=== PATIENT | male | born 1935 | race Caucasian/White ===

== ENCOUNTER 2021-03-13 16:26 | Inpatient (IN) | payer MEDICARE ==
[~2021-03-13] VITALS: Ht 182.9 cm; Wt 70.8 kg
[~2021-03-13 16:26] MED LIST: AMIT50TA3 PO; CARB-93 PO; CITA20TA16 PO; ESCI10TA PO; LORA1TAB PO
--- NOTE | 2021-03-13 16:32 | NUR ---
PT BIBRA FROM SNF TO ER BED 07. PER EMS REPORT, HERE FOR GENERALIZED WEAKNESS AND DIARRHEA FOR 2 DAYS. PT HAS A FEVER 101.7 MAIL CLERK. DENIES ANY PAIN. HYPOTENSIVE UPON INTIAL ASSESSMENT. GOWNED. AWAITING MD COLLADO.
--- NOTE | 2021-03-13 16:41 | NUR ---
DR GARCIA AT BEDSIDE FOR EVAL.
--- NOTE | 2021-03-13 16:45 | NUR ---
PT PROVIDED W/ BED BATH. SOILED DIAPER CHANGED.
[2021-03-13] MEDS ORDERED: IV NS 0.9% 1,000 ML BAG IV ONE (17:00)
[2021-03-13] MEDS ORDERED: ACETAMINOPHEN ES 500 MG TABLET PO ONE (17:00)
[2021-03-13] MEDS ORDERED: PIPERACILLIN /TAZOBACTAM 3.375 G in IV D5W 50 ML IV ONE (17:00)
[2021-03-13] MEDS ORDERED: IBUPROFEN 600 MG TABLET PO ONE (17:00)
--- NOTE | 2021-03-13 17:00 | NUR ---
IV LINE STARTED BLOOD DRAWN AND SENT TO LAB.
[2021-03-13 17:08] LABS: BASOPHILS % (AUTO) 0.2 % (0.0-2.0); EOSINOPHILS % (AUTO) 0.1 % (0.0-6.0); HEMATOCRIT 36 % (39-51); HEMOGLOBIN 11.7 g/dL (13.5-17.5); LYMPHOCYTES # (AUTO) 0.4 K/uL (0.8-4.8); MEAN CORPUSCULAR HGB CONC 33 g/dl (31.0-36.0); MEAN CORPUSCULAR VOLUME 81 fL (80-96); MONOCYTES % (AUTO) 10.1 % (2.0-12.0); NEUTROPHILS # (AUTO) 8.2 K/uL (1.8-8.9); NEUTROPHILS % (AUTO) 85.6 % (43.0-81.0); PLATELET COUNT (AUTO) 308 K/uL (150-450); RED BLOOD CELL COUNT(AUTO) 4.44 MIL/uL (4.5-6.0); WHITE BLOOD COUNT (AUTO) 9.5 K/uL (4.3-11.0)
--- NOTE | 2021-03-13 17:14 | NUR ---
RADIOLOGY AT BEDSIDE FOR CHEST XRAY.
[2021-03-13 17:15] LABS: BILIRUBIN,URINE SMALL (NEGATIVE); COLOR,URINE YELLOW (YELLOW); LEUKOCYTE ESTERASE ,URINE Negative (NEGATIVE); NITRITE, URINE Negative (NEGATIVE); PH,URINE 6.5 (5.0-8.0); PROTEIN,URINE 100 mg/dl (NEGATIVE); UGLUCOSE Negative (NEGATIVE)
[2021-03-13 17:16] LABS: CALCIUM, SERUM 8.5 mg/dL (8.5-10.1); CARBON DIOXIDE 28 mmol/L (21-32); CHLORIDE 95 mmol/L (98-107); GLUCOSE 134 mg/dL (74-106); POTASSIUM 4.5 mmol/L (3.5-5.1); SODIUM SERUM 130 mmol/L (136-145); UREA NITROGEN, BLOOD 26 mg/dL (7-18)
[2021-03-13] MEDS ORDERED: ACETAMINOPHEN ES 500 MG TABLET ONE (17:21)
[2021-03-13 17:22] LABS: ALANINE AMINOTRANSFERASE 8 U/L (12-78); ALBUMIN 2.7 g/dL (3.4-5.0); ALKALINE PHOSPHATASE 83 U/L (46-116); ASPARTATE AMINOTRANSFERASE 48 U/L (15-37); BILIRUBIN,DIRECT 0.1 mg/dL (0.0-0.2); BILIRUBIN,TOTAL 0.5 mg/dL (0.2-1.0); TOTAL PROTEIN, SERUM 6.7 g/dL (6.4-8.2)
[2021-03-13] MEDS ORDERED: IBUPROFEN 600 MG TABLET ONE (17:22)
[2021-03-13 17:43] LABS: BACTERIA,URINE Rare /HPF (None Seen); RBC,URINE NONE SEEN /HPF (0-2); SQUAMOUS EPITHELIAL CELL,UR Few /HPF (None Seen); WBC,URINE NONE SEEN /HPF (0-3)
--- NOTE | 2021-03-13 17:53 | NUR ---
PT'S DAUGHTER AT BEDSIDE. REFUSING COVID TEST. DR GARCIA MADE AWARE.
--- NOTE | 2021-03-13 18:23 | NUR ---
EMMA DAUGHTER LEFT CONTACT # [phone]
--- NOTE | 2021-03-13 18:55 | NUR ---
PT TO RADIOLOGY FOR ABDOMINAL CT SCAN VIA [facility].
--- NOTE | 2021-03-13 19:42 | NUR ---
CALLED [facility], PAGED CASE RESOLUTION SPECIALIST FOR ADMISSION
--- NOTE | 2021-03-13 20:10 | NUR ---
PT SLEEPING COMFORTABLY IN BED. VITAL SIGNS STABLE. RESPIRATIONS EVEN AND UNLABORED. NO ACUTE DISTRESS NOTED AT THIS TIME. STILL ON MONITOR, WILL CONTINUE TO MONITOR
--- NOTE | 2021-03-13 20:59 | NUR ---
REPORT GIVEN TO JOHN HERNANDEZ FOR MANDO
[2021-03-13] MEDS ORDERED: Z GUARD REMEDY 2 OZ OINT TP PRN (21:00)
[2021-03-13] MEDS ORDERED: ONDANSETRON HCL/PF 4 MG/2 ML VIAL IVP PRN (21:00)
[2021-03-13] MEDS ORDERED: ACETAMINOPHEN 325 MG TABLET PO PRN (21:00)
[2021-03-13] MEDS ORDERED: ZOLPIDEM TARTRATE 5 MG TABLET PO PRN (21:00)
[2021-03-13] MEDS ORDERED: MAG HYDROX/AL HYDROX/SIMETH 30 ML UDC PO PRN (21:00)
[2021-03-13] MEDS ORDERED: MAGNESIUM HYDROXIDE 30 ML UDC PO PRN (21:00)
--- NOTE | 2021-03-13 21:26 | NUR ---
PT TRANSFERRED TO TELE 103 PER [employer]S PROTOCOL
[2021-03-13] MEDS: IV NS 0.9% 1,000 ML IV PRN (22:50)
[2021-03-13] MEDS: ENOXAPARIN SODIUM 40 MG/0.4 ML DISP.SYRIN SQ SCH (22:55)
[2021-03-13] MEDS ORDERED: PIPERACILLIN /TAZOBACTAM 3.375 G VIAL IV ONE (23:46)
[2021-03-13] MEDS: ZOSYN IVPB 3.375 G in IV D5W 50ml IV SCH (23:48)
[2021-03-14] VITALS: BP 99/54
--- NOTE | 2021-03-14 03:24 | NUR ---
RN notes Admitted an 86 year old male from ER via stretcher with diagnosis of fever of unknown origin. Alert and oriented x 2 with confusion and disorientation. Able to follow needs and answers simple questions verbally, non ambulatory. No complaint of pain or discomfort as of this time. On nasal cannula at 3lpm tolerating well. No distress noted, breathing even and unlabored. Vital signs wnl. Kept clean and dry. Will endorse to next shift for continuity of care.
[2021-03-14 04:00] VITALS: BP 113/48
[2021-03-14] MEDS ORDERED: PIPERACILLIN /TAZOBACTAM 3.375 G VIAL IV ONE (04:23)
[2021-03-14] MEDS: ZOSYN IVPB 3.375 G in IV D5W 50ml IV SCH (04:29)
[2021-03-14 06:43] LABS: BASOPHILS % (AUTO) 0.2 % (0.0-2.0); EOSINOPHILS % (AUTO) 1.2 % (0.0-6.0); HEMATOCRIT 34 % (39-51); HEMOGLOBIN 10.9 g/dL (13.5-17.5); LYMPHOCYTES # (AUTO) 0.5 K/uL (0.8-4.8); LYMPHOCYTES % (AUTO) 7.1 % (20.0-44.0); MEAN CORPUSCULAR HGB CONC 32 g/dl (31.0-36.0); MEAN CORPUSCULAR VOLUME 82 fL (80-96); MONOCYTES # (AUTO) 0.8 K/uL (0.1-1.30); MONOCYTES % (AUTO) 10.9 % (2.0-12.0); NEUTROPHILS # (AUTO) 6.2 K/uL (1.8-8.9); NEUTROPHILS % (AUTO) 80.6 % (43.0-81.0); PLATELET COUNT (AUTO) 254 K/uL (150-450); RED BLOOD CELL COUNT(AUTO) 4.13 MIL/uL (4.5-6.0); WHITE BLOOD COUNT (AUTO) 7.7 K/uL (4.3-11.0)
[2021-03-14 07:07] LABS: ALBUMIN 2.1 g/dL (3.4-5.0); BILIRUBIN,TOTAL 0.5 mg/dL (0.2-1.0); MAGNESIUM 2.6 mg/dL (1.8-2.4); PHOSPHORUS 3.7 mg/dL (2.5-4.9); POTASSIUM 4.5 mmol/L (3.5-5.1); TOTAL PROTEIN, SERUM 5.8 g/dL (6.4-8.2)
[2021-03-14 07:33] LABS: THYROID STIMULATING HORMONE 2.011 uIU/mL (0.358-3.74)
[2021-03-14] MEDS: PANTOPRAZOLE 40 MG TABLET.DR PO SCH (07:42)
[2021-03-14] MEDS ORDERED: LORA1TAB PO (07:53)
[2021-03-14] MEDS ORDERED: CARB-93 PO (07:53)
[2021-03-14] MEDS ORDERED: DOCU100C36 PO (07:53)
[2021-03-14] MEDS ORDERED: OMEP20CA15 PO (07:53)
[2021-03-14] MEDS ORDERED: CITA20TA16 PO (07:53)
[2021-03-14 08:00] VITALS: BP 113/48
[2021-03-14] MEDS: PIPERACILLIN /TAZOBACTAM 3.375 G in IV D5W 100 ML IV SCH ×2 (09:43→17:31)
[2021-03-14] MEDS ORDERED: ASCO500C17 PO (09:55)
[2021-03-14] MEDS ORDERED: ACET325T53 PO (09:55)
[2021-03-14] MEDS ORDERED: ERGO500093 PO (09:55)
[2021-03-14] MEDS ORDERED: MAGN400O6 PO (09:55)
[2021-03-14] MEDS ORDERED: MULT-447 PO (09:55)
[2021-03-14] MEDS ORDERED: MAGN500C16 PO (09:55)
[2021-03-14] MEDS ORDERED: MELA5TAB PO (09:55)
[2021-03-14] MEDS ORDERED: PSYL1PAC8 PO (09:55)
[2021-03-14] MEDS ORDERED: NA P133E RC (09:55)
[2021-03-14] MEDS ORDERED: VIT1CAPS9 PO (09:55)
[2021-03-14] MEDS ORDERED: CHOL100034 PO (09:55)
[2021-03-14 12:00] VITALS: BP 113/48
[2021-03-14] MEDS ORDERED: SINEMET 25-250 PO (12:05)
[2021-03-14] MEDS ORDERED: SINEMET PO (12:05)
[2021-03-14 16:00] VITALS: BP 118/61
[2021-03-14 20:00] VITALS: BP 104/55
[2021-03-14] MEDS: CARBIDOPA/LEVODOPA 25/100 MG 1 UDTAB PO SCH (21:33)
[2021-03-14] MEDS: MAGNESIUM OXIDE 400 MG TABLET PO SCH (21:33)
[2021-03-14] MEDS: ENOXAPARIN SODIUM 40 MG/0.4 ML DISP.SYRIN SQ SCH (21:34)
[2021-03-15] MEDS: PIPERACILLIN /TAZOBACTAM 3.375 G in IV D5W 100 ML IV SCH ×3 (02:03→17:04)
[2021-03-15 04:00] VITALS: BP 108/48
--- NOTE | 2021-03-15 06:14 | NUR ---
MS-1/PRECINCT COMMANDING OFFICER COVID NEGATIVE PT TRANSFERRED TO ROOM 113-1
[2021-03-15] MEDS: CARBIDOPA/LEVODOPA 25/100 MG 1 UDTAB PO SCH ×5 (06:19→20:29)
[2021-03-15 06:28] LABS: BASOPHILS % (AUTO) 0.3 % (0.0-2.0); EOSINOPHILS % (AUTO) 1.3 % (0.0-6.0); HEMATOCRIT 31 % (39-51); HEMOGLOBIN 10.4 g/dL (13.5-17.5); LYMPHOCYTES # (AUTO) 0.6 K/uL (0.8-4.8); LYMPHOCYTES % (AUTO) 6.5 % (20.0-44.0); MEAN CORPUSCULAR HGB CONC 33 g/dl (31.0-36.0); MEAN CORPUSCULAR VOLUME 81 fL (80-96); MONOCYTES # (AUTO) 1.2 K/uL (0.1-1.30); MONOCYTES % (AUTO) 12.2 % (2.0-12.0); NEUTROPHILS # (AUTO) 7.8 K/uL (1.8-8.9); NEUTROPHILS % (AUTO) 79.7 % (43.0-81.0); PLATELET COUNT (AUTO) 277 K/uL (150-450); RED BLOOD CELL COUNT(AUTO) 3.86 MIL/uL (4.5-6.0); WHITE BLOOD COUNT (AUTO) 9.7 K/uL (4.3-11.0)
[2021-03-15 06:51] LABS: CALCIUM, SERUM 7.9 mg/dL (8.5-10.1); MAGNESIUM 2.4 mg/dL (1.8-2.4); PHOSPHORUS 3.7 mg/dL (2.5-4.9)
--- NOTE | 2021-03-15 07:03 | NUR ---
MS-1/LEAD ENTERPRISE ARCHITECT CALLED PTS DAUGHTER EMMA [phone] TO UPDATE HER ON HER DAD COVID NEGATIVE STATUS AND ROOM CHANGE. MESSAGE LEFT WILL ENDORSE TO AM SHIFT.
[2021-03-15] MEDS ORDERED: PANTOPRAZOLE 40 MG TABLET.DR PO SCH (07:30)
[2021-03-15 08:00] VITALS: BP 104/46
--- NOTE | 2021-03-15 08:16 | NUR ---
RN NOTES RECEIVED PT AWAKE AND RESTING IN BED, NO SIGNS OF ANY DISTRESS. NO SIGNS AND SYMPTOMS OF ANY PAIN OR DISCOMFORT NOTED. IV ACCESS IN Place with ivf infusing. safetu ensured, bsr up, call light within reach. will conitinue to monitor Addendum: 03/15/21 at 1732 by RAFFY TRACY RN upon endorsement SIMÓN Rene endorsed that pt had an episode of bm
--- NOTE | 2021-03-15 09:00 | NUR ---
rn notes pt noted with enema order, clarified with Gita Orozco upon rounds and she said no need for enema at this time
[2021-03-15] MEDS: CHOLECALCIFEROL 1,000 UNIT TABLET (VIT D3) PO SCH (09:44)
[2021-03-15] MEDS: MULTIVITAMINS,THERAGRAN 1 UDTAB TABLET PO SCH (09:44)
[2021-03-15] MEDS: DOCUSATE SODIUM 100 MG CAPSULE PO SCH ×2 (09:45→17:04)
[2021-03-15] MEDS: CITALOPRAM HYDROBROMIDE 20 MG TABLET PO SCH (09:45)
[2021-03-15] MEDS: ASCORBIC ACID 500 MG TABLET PO SCH (09:45)
[2021-03-15] MEDS: PANTOPRAZOLE 40 MG TABLET.DR PO SCH (09:47)
[2021-03-15] MEDS ORDERED: POLYETHYLENE GLYCOL 3350 17 GM POWD.PACK PO PRN (10:30)
[2021-03-15] MEDS ORDERED: DOCUSATE SODIUM 100 MG CAPSULE PO SCH (10:30)
[2021-03-15 16:00] VITALS: BP 128/61
--- NOTE | 2021-03-15 17:59 | NUR ---
rn closing notes pt resting in bed; slept intermittently. encouraged rom , pt able to follow. all meds given. no discomfort noted. pts daughter Afua came; updated with plan of care. for PT f/up and continue ATB as ordered
--- NOTE | 2021-03-15 19:25 | NUR ---
rn notes endorsed to next shift rn for continuity of care in stable condition
[2021-03-15 20:00] VITALS: BP 117/45
--- NOTE | 2021-03-15 20:00 | NUR ---
RN NOTE RECEIVED PT IN BED A/A/O X3.PT IS ON RA SATING 97%, HAS UNLABORED BREATHING.WILL CONTINUE WITH PLAN OF CARE.
[2021-03-15] MEDS: ENOXAPARIN SODIUM 40 MG/0.4 ML DISP.SYRIN SQ SCH (20:32)
[2021-03-15] MEDS: MAGNESIUM OXIDE 400 MG TABLET PO SCH (21:45)
[2021-03-15] MEDS ORDERED: CARBIDOPA/LEV CR 50/200 MG 1 UDTAB.SA PO SCH (22:00)
[2021-03-16] MEDS ORDERED: PIPERACILLIN /TAZOBACTAM 3.375 G VIAL IV ONE (03:30)
[2021-03-16] MEDS: IV NS 0.9% 1,000 ML IV PRN (03:31)
[2021-03-16] MEDS: PIPERACILLIN /TAZOBACTAM 3.375 G in IV D5W 100 ML IV SCH ×2 (03:32→11:23)
[2021-03-16 04:00] VITALS: BP 138/53
[2021-03-16 06:38] LABS: BASOPHILS % (AUTO) 0.4 % (0.0-2.0); EOSINOPHILS % (AUTO) 1.3 % (0.0-6.0); HEMATOCRIT 32 % (39-51); HEMOGLOBIN 10.7 g/dL (13.5-17.5); LYMPHOCYTES # (AUTO) 0.7 K/uL (0.8-4.8); LYMPHOCYTES % (AUTO) 8.7 % (20.0-44.0); MEAN CORPUSCULAR HGB CONC 33 g/dl (31.0-36.0); MEAN CORPUSCULAR VOLUME 80 fL (80-96); MONOCYTES # (AUTO) 0.9 K/uL (0.1-1.30); MONOCYTES % (AUTO) 11.3 % (2.0-12.0); NEUTROPHILS % (AUTO) 78.3 % (43.0-81.0); PLATELET COUNT (AUTO) 312 K/uL (150-450); RED BLOOD CELL COUNT(AUTO) 4.03 MIL/uL (4.5-6.0); WHITE BLOOD COUNT (AUTO) 7.6 K/uL (4.3-11.0)
[2021-03-16 07:24] LABS: CREATININE 0.9 mg/dL (0.6-1.3); MAGNESIUM 2.3 mg/dL (1.8-2.4); PHOSPHORUS 3.7 mg/dL (2.5-4.9)
--- NOTE | 2021-03-16 07:38 | NUR ---
RN NOTE REPORT GIVEN TO ONCOMING SHIFT FOR MANDO.
--- NOTE | 2021-03-16 07:50 | NUR ---
MS RN OPENING NOTE PATIENT IS IN BED RESTING. PATIENT IS IN NO ACUTE DISTRESS. PATIENT IS ON ROOM AIR SATURATING WELL. PATIENT IS A FALL RISK. SAFETY PRECAUTIONS ARE ON, BED IS LOCKED IN THE LOWEST POSITION WITH SIDE RAILS UP. CALL LIGHT WITHIN REACH, CONTINUE TO MONITOR CLOSELY.
[2021-03-16] MEDS: ASCORBIC ACID 500 MG TABLET PO SCH (08:07)
[2021-03-16] MEDS: DOCUSATE SODIUM 100 MG CAPSULE PO SCH (08:08)
[2021-03-16] MEDS: CARBIDOPA/LEVODOPA 25/100 MG 1 UDTAB PO SCH ×3 (08:08→14:33)
[2021-03-16] MEDS: CHOLECALCIFEROL 1,000 UNIT TABLET (VIT D3) PO SCH (08:08)
[2021-03-16] MEDS: MULTIVITAMINS,THERAGRAN 1 UDTAB TABLET PO SCH (08:08)
[2021-03-16] MEDS: CITALOPRAM HYDROBROMIDE 20 MG TABLET PO SCH (08:11)
[2021-03-16] MEDS ORDERED: LEVO500T90 PO (10:50)
[2021-03-16] MEDS ORDERED: METR500T PO (10:50)
[2021-03-16 12:00] VITALS: BP 127/54
--- NOTE | 2021-03-16 14:47 | NUR ---
MS REGISTERED NURSE RENAL NOTE PATIENT IS MEDICALLY STABLE TO BE DISCHARGED. PATIENT IS IN NO ACUTE DISTRESS. DISCHARGE INSTRUCTIONS PROVIDED TO PATIENT. PATIENT VERBALIZED UNDERSTANDING. PATIENTS NEEDS WERE ADDRESSED DURING THE STAY. PATIENT HAS REDNESS IN SACRAL AREA, PICTURES TAKEN. PATIENTS IV LINE AND ID BAND REMOVED. BELONGINGS LIST WENT OVER AND SIGNED. PATIENT IS GOING TO [facility]. REPORT GIVEN. PATIENT WAS PICKED UP BY HI DAUGHTER. MD IS AWARE OF DISCHARGE.
[2021-03-18] MEDS ORDERED: ERGOCALCIFEROL (VITAMIN D 2) 50,000 UNIT CAPSULE PO SCH (09:00)
== END 2021-03-16 14:49 | DRG 872 ==
LOC: ER 16:33 → TELE1 20:58 → MEDSG1 03-14 06:52
PROVIDERS: ADMIT Hospitalist; ATTEND Nurse Practitioner Acute Care
DX: A41.9 Sepsis, unspecified organism (principal); E44.0 Moderate protein-calorie malnutrition; E87.1 Hypo-osmolality and hyponatremia; N17.9 Acute kidney failure, unspecified; E86.0 Dehydration; E86.1 Hypovolemia; F02.80 Dementia in other diseases classified elsewhere, unspecified severity, without behavioral disturbance, psychotic disturbance, mood disturbance, and anxiety; G20 Parkinson's disease; F32.9 Major depressive disorder, single episode, unspecified; Z79.899 Other long term (current) drug therapy; Z96.9 Presence of functional implant, unspecified; K62.89 Other specified diseases of anus and rectum; K59.00 Constipation, unspecified; R19.7 Diarrhea, unspecified
CPT/HCPCS: 36415; 71045-TC; 74018; 80048-TC; 80053-TC; 80061-TC; 80076-TC; 81001; 83605-TC; 83735-TC; 84100-TC; 84443-TC; 84484-TC; 85025-TC; 85730-TC; 87040-TC; 87081-TC; 87086-TC; 97116-TC; 97530-TC; G0378; J1650; J2543; J7030; J7060; U0003

== ENCOUNTER 2021-08-16 11:20 | Emergency (ER) | payer MEDICARE ==
[~2021-08-16] VITALS: Ht 182.9 cm; Wt 74.8 kg
[~2021-08-16 11:20] MED LIST changes: +ACET325T53 PO; -AMIT50TA3 PO; +ASCO500C17 PO; +CHOL100034 PO; +DOCU100C36 PO; +ERGO500093 PO; -ESCI10TA PO; +LEVO500T90 PO; -LORA1TAB PO; +MAGN400O6 PO; +MAGN500C16 PO; +MELA5TAB PO; +METR500T PO; +MULT-447 PO; +NA P133E RC; +OMEP20CA15 PO; +SINEMET 25-250 PO; +SINEMET PO; +VIT1CAPS9 PO
--- NOTE | 2021-08-16 11:27 | NUR ---
DR. NAVARRO AT FOR HEAVEN.
--- NOTE | 2021-08-16 11:40 | NUR ---
[id number], from snf, high blood pressure 180/100 on scene. PT AAOX3, VSS. RR EVEN & UNLABORED. DENIES CP, SOB, DIZZINESS, N/V AT THIS TIME. PLACED ON INSULATING MACHINE OPERATOR, SR. WILL CONT TO MONITOR.
--- NOTE | 2021-08-16 11:50 | NUR ---
TRANSVERSE ABDOMINAL MUSCLE SURGEON AT FOR BLOOD DRAW.
[2021-08-16 12:15] LABS: BASOPHILS % (AUTO) 0.3 % (0.0-2.0); EOSINOPHILS % (AUTO) 1.6 % (0.0-6.0); HEMATOCRIT 37 % (39-51); HEMOGLOBIN 12.2 g/dL (13.5-17.5); LYMPHOCYTES # (AUTO) 1.2 K/uL (0.8-4.8); LYMPHOCYTES % (AUTO) 12.8 % (20.0-44.0); MEAN CORPUSCULAR HGB CONC 33 g/dl (31.0-36.0); MEAN CORPUSCULAR VOLUME 81 fL (80-96); MONOCYTES # (AUTO) 0.7 K/uL (0.1-1.30); MONOCYTES % (AUTO) 7.8 % (2.0-12.0); NEUTROPHILS # (AUTO) 7.2 K/uL (1.8-8.9); NEUTROPHILS % (AUTO) 77.5 % (43.0-81.0); PLATELET COUNT (AUTO) 241 K/uL (150-450); RED BLOOD CELL COUNT(AUTO) 4.62 MIL/uL (4.5-6.0); WHITE BLOOD COUNT (AUTO) 9.3 K/uL (4.3-11.0)
[2021-08-16 12:36] LABS: ALANINE AMINOTRANSFERASE 11 U/L (12-78); ALKALINE PHOSPHATASE 95 U/L (46-116); ASPARTATE AMINOTRANSFERASE 11 U/L (15-37); BILIRUBIN,DIRECT 0.1 mg/dL (0.0-0.2); BILIRUBIN,TOTAL 0.4 mg/dL (0.2-1.0); CALCIUM, SERUM 8.5 mg/dL (8.5-10.1); CARBON DIOXIDE 29 mmol/L (21-32); CHLORIDE 102 mmol/L (98-107); GLUCOSE 78 mg/dL (74-106); SODIUM SERUM 138 mmol/L (136-145); TOTAL PROTEIN, SERUM 6.5 g/dL (6.4-8.2); UREA NITROGEN, BLOOD 22 mg/dL (7-18)
--- NOTE | 2021-08-16 13:37 | NUR ---
Patient discharged to SNF in stable condition. Written and verbal after care instructions given to son. Son verbalizes understanding of instruction. IV removed. Catheter intact and site benign. Pressure and 4x4 applied to site. No bleeding noted.
[2021-08-16 13:39] VITALS: BP 150/80
--- NOTE | 2021-08-16 13:40 | NUR ---
Son will drive pt to SNF.
== END 2021-08-16 13:40 ==
LOC: ER 11:22
DX: I10 Essential (primary) hypertension (principal); F41.9 Anxiety disorder, unspecified; Z79.899 Other long term (current) drug therapy
CPT/HCPCS: 36415; 71045-TC; 80048-TC; 80076-TC; 84484-TC; 85025-TC

== ENCOUNTER 2022-09-24 09:41 | Inpatient (IN) | payer MEDICARE ==
[~2022-09-24] VITALS: Ht 182.9 cm; Wt 72.6 kg
--- NOTE | 2022-09-24 09:48 | NUR ---
JANAE FROM [facility] FOR CONSTIPATION, ABDOMINAL DISTENSION X 4 DAYS. PT LAST BOWEL MOVEMENT WAS "4DAYS AGO". DENIES VOMITING OR NAUSEA. PT TAKEN TO BED, PLACED IN MONITOR. AAOX4 .BREATHING EVEN AND UNLABORED. VSS. AWAITING MD ORDERS.
[2022-09-24] MEDS ORDERED: ONDANSETRON HCL/PF 4 MG/2 ML VIAL IVP ONE (10:00)
--- NOTE | 2022-09-24 10:10 | NUR ---
ESTABLISHED IV 20G RIGHT FOREARM. BLOOD DRAW, SENT TO LAB.
--- NOTE | 2022-09-24 10:13 | NUR ---
TAKEN TO CT VIA [facility]
[2022-09-24 10:23] LABS: BASOPHILS % (AUTO) 0.2 % (0.0-2.0); EOSINOPHILS % (AUTO) 0.1 % (0.0-6.0); HEMATOCRIT 39 % (39-51); HEMOGLOBIN 12.3 g/dL (13.5-17.5); LYMPHOCYTES # (AUTO) 0.6 K/uL (0.8-4.8); LYMPHOCYTES % (AUTO) 4.9 % (20.0-44.0); MEAN CORPUSCULAR HGB CONC 32 g/dl (31.0-36.0); MEAN CORPUSCULAR VOLUME 83 fL (80-96); MONOCYTES # (AUTO) 0.6 K/uL (0.1-1.30); MONOCYTES % (AUTO) 4.7 % (2.0-12.0); NEUTROPHILS # (AUTO) 10.7 K/uL (1.8-8.9); NEUTROPHILS % (AUTO) 90.1 % (43.0-81.0); PLATELET COUNT (AUTO) 220 K/uL (150-450); WHITE BLOOD COUNT (AUTO) 11.8 K/uL (4.3-11.0)
--- NOTE | 2022-09-24 10:28 | NUR ---
RETURNED FROM CT.
--- NOTE | 2022-09-24 10:29 | NUR ---
PT PLACED ON URINAL. UNABLE TO GIVE URINE AT THIS TIME.
[2022-09-24] MEDS ORDERED: ONDANSETRON HCL/PF 4 MG/2 ML VIAL ONE (10:31)
[2022-09-24 10:57] LABS: ALBUMIN 3.4 g/dL (3.4-5.0); BILIRUBIN,DIRECT 0.1 mg/dL (0.0-0.2); BILIRUBIN,TOTAL 0.5 mg/dL (0.2-1.0); POTASSIUM 4.6 mmol/L (3.5-5.1)
--- NOTE | 2022-09-24 11:07 | NUR ---
covid swab collected and sent to lab
[2022-09-24] MEDS ORDERED: [UNRECOGNIZED DRUG - CODE] MC (11:43)
[2022-09-24] MEDS ORDERED: LACT20SO4 PO (11:43)
[2022-09-24] MEDS ORDERED: CANN100S PO (11:43)
[2022-09-24] MEDS ORDERED: LORA-259 PO (11:43)
[2022-09-24] MEDS ORDERED: CARB1TAB40 PO (11:43)
[2022-09-24] MEDS ORDERED: LOPE2CAP40 PO (11:43)
--- NOTE | 2022-09-24 11:45 | NUR ---
[facility] CALLED OIL SEAL ASSEMBLER PAGED.
--- NOTE | 2022-09-24 12:47 | NUR ---
EPIC FOOT MITER OPERATOR PAGED AGAIN.
--- NOTE | 2022-09-24 12:58 | NUR ---
GOT BED 324-1
--- NOTE | 2022-09-24 13:08 | NUR ---
REPORT GIVEN TO MARY LOPEZ
--- NOTE | 2022-09-24 14:00 | NUR ---
FORENSIC EXAMINER NOTE ADMITTED THIS 87 Y/O MALE PATIENT FROM ER, CAME TO THE UNIT @1330 TRANSPORTED VIA GURNEY ACCOMPANIED BY ER STAFF MARINA, WITH ADMITTING DIAGNOSIS OF: OBSTIPATION. PATIENT IS AWAKE, ALERT AND ORIENTED X4, VERBALLY RESPONSIVE, SOFT SPOKEN. NO SIGNS OF ACUTE DISTRESS NOTED. STABLE ON ROOM AIR. VITAL SIGNS FOLLOWS: BP 139/61, P 75, R 18, T 97.9, SPO2 97% ON ROOM AIR. NOTED WITH IV ACCESS ON RIGHT FOREARM #20G, INTACT AND PATENT, FLUSHES WELL AND SALINE LOCKED. BODY ASSESSMENT DONE. NOTED WITH ABDOMINAL DISTENTION, POSITIVE BOWEL SOUNDS ON ALL QUADRANTS. SKIN GENERALLY INTACT, NOTED WITH REDNESS ON BILATERAL HEEL, AND BILATERAL FEET, NON-BLANCHABLE. WILL ORDER WOUND CARE CONSULT. ROUTINE ADMISSION CARE PROVIDED. ORIENTED PATIENT TO STAFF AND ROOM. SAFETY MEASURE IN PLACE. BED IN LOW AND LOCKED POSITION, SIDE RAILS UP X2, CALL LIGHT PLACED WITHIN EASY REACH. WILL CONTINUE TO MONITOR PATIENT.
[2022-09-24 14:44] VITALS: BP 139/61
[2022-09-24] MEDS ORDERED: NA PHOS,M-B/NA PHOS,DI-BA 1 EA ENEMA RC ONE (15:41)
[2022-09-24] MEDS ORDERED: MAGNESIUM HYDROXIDE 30 ML UDC PO PRN (17:00)
[2022-09-24] MEDS ORDERED: LORAZEPAM 1 MG TABLET PO PRN (17:00)
[2022-09-24] MEDS ORDERED: Z GUARD REMEDY 4 OZ OINT TP PRN (17:00)
[2022-09-24] MEDS ORDERED: ACETAMINOPHEN 325 MG TABLET PO PRN (17:00)
[2022-09-24] MEDS ORDERED: BISACODYL SUPP (10 MG) 10 MG/SUPP.RECT SUPP.RECT RC PRN (17:00)
[2022-09-24] MEDS ORDERED: LOPERAMIDE HCL (2 MG CAP) 2 MG CAPSULE PO PRN (17:00)
[2022-09-24] MEDS ORDERED: NA PHOS,M-B/NA PHOS,DI-BA 1 EA ENEMA RC PRN (17:00)
[2022-09-24] MEDS ORDERED: ONDANSETRON HCL/PF 4 MG/2 ML VIAL IVP PRN (17:00)
[2022-09-24] MEDS: DOCUSATE SODIUM 100 MG CAPSULE PO SCH (17:28)
[2022-09-24] MEDS: LACTULOSE 10 G/15 ML UDC (PYXIS) PO SCH ×2 (17:28→22:38)
[2022-09-24] MEDS: SORBITOL SOLUTION 70% 30 ML SOLUTION PO SCH (17:28)
[2022-09-24] MEDS: CARBIDOPA/LEVODOPA 25/100 MG 1 UDTAB PO SCH ×2 (17:29→20:30)
[2022-09-24] MEDS: IV LR 1000 ML 1,000 ML IV PRN (18:19)
--- NOTE | 2022-09-24 18:55 | NUR ---
RN NOTE PATIENT IN BED AWAKE, ABLE TO HAVE LARGE BM AFTER FLEET ENEMA GIVEN EARLIER. IVF OF LR @ 80 ML/HR RUNNING. WILL ENDORSE TO NEXT SHIFT FOR CONTINUITY OF CARE.
--- NOTE | 2022-09-24 19:36 | NUR ---
RN OPENING NOTE PATIENT IS AWAKE, ALERT AND ORIENTED X3, VERBALLY RESPONSIVE, SOFT SPOKEN. NO SIGNS OF ACUTE DISTRESS NOTED SPO2 97% ON ROOM AIR. NOTED WITH IV ACCESS ON RIGHT FOREARM #20G, INTACT AND PATENT, FLUSHES RUNNING LR @80ML/HR. SAFETY MEASURE IN PLACE. BED IN LOW AND LOCKED POSITION, SIDE RAILS UP X2, CALL LIGHT PLACED WITHIN EASY REACH.
[2022-09-24 20:00] VITALS: BP 130/72
[2022-09-24] MEDS: CARBIDOPA/LEV CR 50/200 MG 1 UDTAB.SA PO SCH (22:11)
[2022-09-24] MEDS: ENOXAPARIN SODIUM 40 MG/0.4 ML DISP.SYRIN SQ SCH (22:14)
[2022-09-25] MEDS: IV LR 1000 ML 1,000 ML IV PRN ×2 (05:09→18:36)
[2022-09-25 05:44] LABS: BASOPHILS % (AUTO) 0.2 % (0.0-2.0); HEMATOCRIT 35 % (39-51); HEMOGLOBIN 11.4 g/dL (13.5-17.5); LYMPHOCYTES # (AUTO) 0.8 K/uL (0.8-4.8); LYMPHOCYTES % (AUTO) 8.7 % (20.0-44.0); MEAN CORPUSCULAR HGB CONC 32 g/dl (31.0-36.0); MEAN CORPUSCULAR VOLUME 81 fL (80-96); MONOCYTES # (AUTO) 0.7 K/uL (0.1-1.30); MONOCYTES % (AUTO) 7.1 % (2.0-12.0); NEUTROPHILS # (AUTO) 7.8 K/uL (1.8-8.9); PLATELET COUNT (AUTO) 212 K/uL (150-450); RED BLOOD CELL COUNT(AUTO) 4.34 MIL/uL (4.5-6.0); WHITE BLOOD COUNT (AUTO) 9.3 K/uL (4.3-11.0)
[2022-09-25] MEDS: LACTULOSE 10 G/15 ML UDC (PYXIS) PO SCH ×4 (05:47→23:10)
[2022-09-25 06:01] LABS: CHOLESTEROL 137 mg/dL (<200); HDL CHOLESTEROL 66 mg/dL (40-60); LDL 65 mg/dL (0-99); TRIGLYCERIDES 72 mg/dL (30-150)
[2022-09-25] MEDS: CARBIDOPA/LEVODOPA 25/100 MG 1 UDTAB PO SCH ×5 (06:03→21:40)
[2022-09-25 06:06] LABS: CALCIUM, SERUM 8.5 mg/dL (8.5-10.1); CARBON DIOXIDE 25 mmol/L (21-32); CHLORIDE 107 mmol/L (98-107); CREATININE 0.9 mg/dL (0.6-1.3); GLUCOSE 118 mg/dL (74-106); MAGNESIUM 2.2 mg/dL (1.8-2.4); POTASSIUM 3.3 mmol/L (3.5-5.1); SODIUM SERUM 141 mmol/L (136-145); UREA NITROGEN, BLOOD 20 mg/dL (7-18)
--- NOTE | 2022-09-25 06:53 | NUR ---
RN CLOSING NOTE PATIENT IS AWAKE, ALERT AND ORIENTED X3, VERBALLY RESPONSIVE, SOFT SPOKEN. NO SIGNS OF ACUTE DISTRESS NOTED SPO2 97% ON ROOM AIR. NOTED WITH IV ACCESS ON RIGHT FOREARM #20G, INTACT AND PATENT, FLUSHES RUNNING LR @80ML/HR. ALL DUE MEDICATION GIVEN AND TOLERATED WELL. PT HAS 4 LARGE SOFT PASTY BM DURING SHIFT HOWEVER STILL HAS CONSIDERABLE ABDOMINAL DISTENTION.SAFETY MEASURE IN PLACE. BED IN LOW AND LOCKED POSITION, SIDE RAILS UP X2, CALL LIGHT PLACED WITHIN EASY REACH. ALL NEEDS MET.WILL ENDORSE CARE TO DAY SHIFT NURSE.
--- NOTE | 2022-09-25 07:30 | NUR ---
RN MS NOTES PT IN BED, ASLEEP, EASY TO AROUSE, ALERT AND VERBALLY RESPONSIVE, ABLE TO MAKE NEEDS KNOWN, CALL LIGHT WITHIN REACH, KEPT HOB ELEVATED, KEPT WARM AND COMFORTABLE IN BED.
[2022-09-25 08:00] VITALS: BP 166/76
[2022-09-25] MEDS ORDERED: POTASSIUM CHLORIDE 20 MEQ POWDER PACKET PO ONE (09:00)
[2022-09-25] MEDS: SORBITOL SOLUTION 70% 30 ML SOLUTION PO SCH ×2 (09:12→16:49)
[2022-09-25] MEDS: DOCUSATE SODIUM 100 MG CAPSULE PO SCH ×2 (09:12→16:49)
[2022-09-25] MEDS: PANTOPRAZOLE 40 MG TABLET.DR PO SCH (09:12)
[2022-09-25] MEDS: CITALOPRAM HYDROBROMIDE 20 MG TABLET PO SCH (09:13)
[2022-09-25 16:00] VITALS: BP 159/79
--- NOTE | 2022-09-25 18:59 | NUR ---
RN MS NOTES PT IN BED, RESTING, AWAKE, ALERT AND VERBALLY RESPONSIVE, DENIES PAIN, NOT IN DISTRESS, IV FLUIDS INFUSING WELL, PM MEDS GIVEN, PM CARE PROVIDED, HAD 4 LARGE BOWEL MOVEMENTS TODAY, ALL NEEDS ATTENDED.
[2022-09-25 20:00] VITALS: BP 131/70
--- NOTE | 2022-09-25 20:06 | NUR ---
MS RN OPENING NOTES: RECEIVED PATIENT AWAKE IN BED, BED IN LOW POSITION CALL LIGHTS WITHIN REACH, NO COMPLAIN OF PAIN AND DISCOMFORT AT THIS TIME, ON ROOM AIR SATURATING WELL, NO SOB WAS OBSERVED, PATIENT IS A/OX2-3 ON BED REST, IV LINE AT RFA#20 WITH ONGOING PLR@80ML/HR INFUSING WELL, PATIENT KEPT CLEAN AND DRY ALL NEEDS MET WILL CONTINUE TO MONITOR-
--- NOTE | 2022-09-25 22:30 | NUR ---
RN NOTES MAALOX ONE TIME NOT GIVEN PATIENT REFUSED
[2022-09-25] MEDS: CARBIDOPA/LEV CR 50/200 MG 1 UDTAB.SA PO SCH (22:41)
[2022-09-25] MEDS: ENOXAPARIN SODIUM 40 MG/0.4 ML DISP.SYRIN SQ SCH (22:42)
[2022-09-26] MEDS ORDERED: MAG HYDROX/AL HYDROX/SIMETH 30 ML UDC PO ONE
--- NOTE | 2022-09-26 00:02 | NUR ---
RN NOTES: NOTIFY DR ALAN BURGESS FOR PATIENT, REGARDING RECURRENT BM 4 LARGE IN AM AND 2 MORE LARGE ON MY SHIFT OF 12.00MN, EARLIER PATIENT POTASSIUM WAS 3.3 AND WAS REPLACE, PATIENT HAS ALSO ONE MORE DOSE OF SORBITOL LEFT OUT OF 4 DOSE TO COMPLETE, COMPLAIN OF EPIGASTRIC PAIN, AND ORDERED MAALOX ONE TIME, AND TO HOLD LAXATIVES FOR TODAY NOTED AND CARRY OUT.
[2022-09-26] MEDS: LACTULOSE 10 G/15 ML UDC (PYXIS) PO SCH ×4 (06:00→23:00)
--- NOTE | 2022-09-26 06:00 | NUR ---
RN NOTES LACTULOSE 6OMG Q6H NOT GIVEN PER DR PHILLIPS TO HOLD LAXATIVE FOR TODAY PATIENT HAS LARGE 4 BM IN AM AND 3 LARGE BM ON INSURANCE ACCOUNT MANAGER, POTASSIUM WAS AT 3.3 YESTERDAY AND REPLACE. WILL CONTINUE TO MONITOR
[2022-09-26] MEDS: CARBIDOPA/LEVODOPA 25/100 MG 1 UDTAB PO SCH ×5 (06:48→23:01)
--- NOTE | 2022-09-26 06:56 | NUR ---
MS RN CLOSING NOTES: PATIENT AWAKE IN BED NO COMPLAIN OF PAIN AND DISCOMFORT AT THIS TIME, HOB AT 45 DEGREE, ON ROOM AIR SATURATING WELL, IV LINE AT RFA #20 WITH PLR @80ML/HR INFUSING WELL, ON O2 INHALATION AT 2LPM SATURATING WELL. PATIENT HAS 3 LARGE BM PRIOR TO THAT 4 BM IN AM, NOTIFY DR PHILLIPS AND ORDER TO HOLD LAXATIVE FOR TODAY, PATIENT KEPT CLEAN AND DRY ALL NEEDS WILL CONTINUE TO MONITOR
[2022-09-26 07:00] VITALS: BP 112/56
--- NOTE | 2022-09-26 07:30 | NUR ---
PT RECEIVED RESTING COMFORTABLY IN BED WITH EYES CLOSED. NO S/S OR C/O PAIN OR DISTRESS NOTED. SIDE RAILS UP X2, CALL LIGHT LEFT WITHIN REACH. WILL CONTINUE PLAN OF CARE.
[2022-09-26] MEDS: SORBITOL SOLUTION 70% 30 ML SOLUTION PO SCH (09:00)
[2022-09-26] MEDS: PANTOPRAZOLE 40 MG TABLET.DR PO SCH (09:01)
[2022-09-26] MEDS: DOCUSATE SODIUM 100 MG CAPSULE PO SCH ×2 (09:01→16:59)
[2022-09-26] MEDS: CITALOPRAM HYDROBROMIDE 20 MG TABLET PO SCH (09:01)
[2022-09-26 09:56] LABS: CALCIUM, SERUM 8.4 mg/dL (8.5-10.1); CREATININE 1.1 mg/dL (0.6-1.3)
[2022-09-26 10:00] VITALS: BP 112/56
[2022-09-26 10:14] LABS: POTASSIUM 2.5 mmol/L (3.5-5.1)
[2022-09-26] MEDS ORDERED: POTASSIUM CHLORIDE 20 MEQ TAB.PRT.SR PO ONE (14:00)
[2022-09-26] MEDS: POTASSIUM CL. PREMIX PERIPHER. 50 ML IV SCH ×4 (15:09→23:17)
--- NOTE | 2022-09-26 18:26 | NUR ---
CHANGE OF SHIFT REPORT PT RESTING COMFORTABLY IN BED. NO S/S OR C/O PAIN OR DISTRESS NOTED. SIDE RAILS UP X2, CALL LIGHT LEFT WITHIN REACH. NO SIGNIFICANT CHANGES SINCE PREVIOUS SHIFT. WILL GIVE REPORT TO ALONZO LOPEZ.
[2022-09-26 20:00] VITALS: BP 121/45
--- NOTE | 2022-09-26 20:00 | NUR ---
MS RN OPENING NOTES: RECEIVED PATIENT AWAKE IN BED , BE DIN LOW POSITION CALL LIGHTS WITHIN REACH, NO COMPLAIN OF PAIN AND DISCOMFORT AT THIS TIME, ON O2 INAHALTION AT 2LPM SATURATING WELL. HOB AT 30 DEGREE, PATIENT IS A/OX2-3 WITH EPISODE OF CONFUSION, IV LINE AT RFA#20 WITH ONGOING PLR@ 80ML / HR INFUSING WELL, PATIENT IS VERBALLY RESPONSIVE FOR D/C TO [facility] AWAITING TO [employer] SOLUTIONS SPECIALIST SCHEDULE AT 2029, DOCUMENT ARE PRINTED, PATIENT KEPT CLEAN AND DRY ALL NEEDS MET WILL CONTINUE TO MONITOR/
--- NOTE | 2022-09-26 20:45 | NUR ---
RN NOTES: CALLED [facility] SPOKE TO CHRIS CROWE,FOR ENDORSEMENT, CALLED DPOA KAMALA TO NOTIFY THAT AMBULANCE WAS HERE FOR PATIENT TO BE DISCHARGE AND [facility] FOR CONT[facility] CARE, PER KAMALA, HE SPOKE TO CHRISTOPHER,THAT PATIENT WILL BE TRANSFER TO [facility] IN [facility] INSTEAD ON [facility] IN WHICH SHE DISAGREE, EXPLAINED TO HER THAT WE JUST READ WHAT THE INFORMATION WE HAD AND BASED ALSO IN ENDORSEMENT, TOLD HER WE WILL TRY TO COORDINATE WITH THE AUTOMATION ENGINEER, ABOUT THE INCIDENT AND WE WILL COORDINATE WITH HER AND GIVE HER UPDATES, CALLED CHRISTOPHER STEWART AND LEFT MESSAGE AWAITING FOR REPLY, AMBULANCE LEFT AT 2130, PATIENT WAS IN BED REMAIN STABLE, ALL DUE MEDICATIONS GIVEN WILL CONTINUE TO MONITOR. Addendum: 09/27/22 at 0136 by MARVA PINEDA RN RN NOTES: RECEIVED A CALL FROM [facility], FOR NURSE JENNIE ABOUT HER CLARIFICATION ON THE POTASSIU LEVEL OF PATIENT AT 2.5, TOLD HER THAT IT WAS REPLACED ALREADY DURING THE AM SHIFT OF POTASSIUM CHLORIDE PO 80 MEQ ONE TIME AND 40 MEQ OF KCL IN 50ML D5 AT 10MEQ EACH 50ML TOTAL OF 4 BAGS, ASKED WHAT IS THE LATEST POTASSIUM LEVEL, AND TOLD HER THAT THE MOST RECENT LABS WAS IN AM AT 0925, AND NO LABS, AFTER POTASSIUM REPLENISHMENTS, PER DON, THEY CANNOT ACCEPT IT FOR NOW UNTIL THE PATIENT HAS UPDATED LABS, CN WAS MADE AWARE, ORDER LABS IN AM FOR REFERENCE, CN WAS MADE AWARE.
[2022-09-26] MEDS: CARBIDOPA/LEV CR 50/200 MG 1 UDTAB.SA PO SCH (23:01)
[2022-09-26] MEDS: ENOXAPARIN SODIUM 40 MG/0.4 ML DISP.SYRIN SQ SCH (23:04)
--- NOTE | 2022-09-26 23:10 | NUR ---
JOHN NOTES: CEPHULAC 60MG Q5 Addendum: 09/26/22 at 2311 by MARVA PINEDA RN RN NOTES: LACTULOSE 60MG NOT GIVEN PATIENT HAS LOOSE WATERY BM X2, POTASSIUM AT 2.5 REPLACED ALREADY.
[2022-09-27] MEDS: IV LR 1000 ML 1,000 ML IV PRN (02:57)
[2022-09-27] MEDS: LACTULOSE 10 G/15 ML UDC (PYXIS) PO SCH (05:00)
--- NOTE | 2022-09-27 05:37 | NUR ---
RN NOTES: LACTULOSE NOT GIVEN PATIENT WAS HAVING SOFT LARGE DIARRHEA X 3
[2022-09-27] MEDS: CARBIDOPA/LEVODOPA 25/100 MG 1 UDTAB PO SCH (06:28)
--- NOTE | 2022-09-27 06:58 | NUR ---
MS RN CLOSING NOTES: PATIENT AWAKE IN BED, BED IN LOW POSITION CALL LIGHTS WITHIN REACH, NO COMPLAIN OF PAIN AND DISCOMFORT AT THIS TIME, ON O2 INHALATION AT 2LPM SATURATING WELL, NO SOB WAS OBSERVED, SKIN ASSESSMENT DONE PICTURE TAKEN FOR DOCUMENTATION, PATIENT KEPT CLEAN AND DRY ALL NEEDS MET WILL ENDORSE TO INCOMING SHIFT.
[2022-09-27 08:00] VITALS: BP 145/60
[2022-09-27] MEDS: DOCUSATE SODIUM 100 MG CAPSULE PO SCH (08:59)
[2022-09-27] MEDS: CITALOPRAM HYDROBROMIDE 20 MG TABLET PO SCH (08:59)
[2022-09-27] MEDS: PANTOPRAZOLE 40 MG TABLET.DR PO SCH (08:59)
[2022-09-27 10:00] VITALS: BP 145/60
--- NOTE | 2022-09-27 11:26 | NUR ---
PT TRANSFERRED TO SNF DISCHARGE INSTRUCTIONS GIVEN ORDERED. ALL QUESTIONS AND CONCERNS ADDRESSED. PATIENT VERBALIZED UNDERSTANDING. IV REMOVED WITH CATHETER INTACT. PRESSURE DRESSING APPLIED. MEDICATION RECONCILIATION FORM COMPLETED. COPY GIVEN TO PATIENT. REPORT GIVEN TO NITIN AT [facility]. PATIENT TRANSPORTED BY AMBULANCE WITH ALL PERSONAL BELONGINGS. NO DISTRESS NOTED AT TIME OF DEPARTURE.
[2022-09-27] MEDS ORDERED: POTASSIUM CHLORIDE 20 MEQ POWDER PACKET GT ONE (11:30)
== END 2022-09-27 10:50 | DRG 391 ==
LOC: ER 09:49 → MED 13:00
PROVIDERS: ADMIT Nurse Practitioner Acute Care; ATTEND Nurse Practitioner Acute Care
DX: K59.03 Drug induced constipation (principal); G93.41 Metabolic encephalopathy; F02.84 Dementia in other diseases classified elsewhere, unspecified severity, with anxiety; E87.6 Hypokalemia; G20 Parkinson's disease; D72.829 Elevated white blood cell count, unspecified; Z87.891 Personal history of nicotine dependence; Z74.09 Other reduced mobility; Z96.82 Presence of neurostimulator; F41.9 Anxiety disorder, unspecified; F32.A Depression, unspecified; Z20.822 Contact with and (suspected) exposure to COVID-19; T42.8X5A Adverse effect of antiparkinsonism drugs and other central muscle-tone depressants, initial encounter; Y92.89 Other specified places as the place of occurrence of the external cause
CPT/HCPCS: 36415; 71045-TC; 80048-TC; 80061-TC; 80076-TC; 82962-TC; 83690-TC; 83735-TC; 84100-TC; 84132-TC; 85025-TC; 87081-TC; 97116-TC; 97530-TC; C9803; G0378; J1650; J2405; J3480; J7120

== ENCOUNTER 2023-06-19 18:28 | Emergency (ER) | payer MEDICARE ==
[~2023-06-19] VITALS: Ht 180.3 cm; Wt 73.0 kg
[~2023-06-19 18:28] MED LIST changes: +CANN100S PO; +CARB1TAB40 PO; -ERGO500093 PO; +LACT20SO4 PO; -LEVO500T90 PO; +LOPE2CAP40 PO; +LORA-259 PO; -METR500T PO; -SINEMET 25-250 PO; -SINEMET PO; +[UNRECOGNIZED DRUG - CODE] MC
[2023-06-19] MEDS ORDERED: predniSONE 10 MG TABLET PO ONE (19:00)
[2023-06-19] MEDS ORDERED: FAMOTIDINE (20 MG) 20 MG TABLET ONE (19:00)
[2023-06-19] MEDS ORDERED: FAMOTIDINE (20 MG) 20 MG TABLET PO ONE (19:00)
[2023-06-19] MEDS ORDERED: diphenhydrAMINE HCL 50 MG CAPSULE PO ONE (19:00)
[2023-06-19] MEDS ORDERED: diphenhydrAMINE HCL 50 MG CAPSULE ONE (19:00)
[2023-06-19] MEDS ORDERED: predniSONE 20 MG TABLET ONE (19:01)
[2023-06-19] MEDS ORDERED: PRED50TA PO (20:16)
[2023-06-19] MEDS ORDERED: CETI-90 PO (20:16)
[2023-06-19 20:53] VITALS: BP 125/68; TEMP 98.4; O2SAT 98
[2023-06-20] MEDS ORDERED: FAMOTIDINE (20 MG) 20 MG TABLET ONE (07:27)
== END 2023-06-19 20:53 | disposition home or self-care (01) ==
LOC: ER 18:32
DX: T78.40XA Allergy, unspecified, initial encounter (principal); G20.A1 Parkinson's disease without dyskinesia, without mention of fluctuations; F02.80 Dementia in other diseases classified elsewhere, unspecified severity, without behavioral disturbance, psychotic disturbance, mood disturbance, and anxiety; F41.9 Anxiety disorder, unspecified; F32.A Depression, unspecified; Z79.899 Other long term (current) drug therapy; X58.XXXA Exposure to other specified factors, initial encounter
CPT/HCPCS: 99284; Q0163; J7512

== ENCOUNTER 2024-08-25 15:21 | Inpatient (IN) | payer MEDICARE ==
[~2024-08-25] VITALS: Ht 172.7 cm; Wt 59.9 kg
[~2024-08-25 15:21] MED LIST changes: +CETI-90 PO; +PRED50TA PO
[2024-08-25 16:13] LABS: BASOPHILS % (AUTO) 0.9 % (0.0-2.0); EOSINOPHILS # (AUTO) 0.1 K/uL (0.0-0.7); EOSINOPHILS % (AUTO) 1.6 % (0.0-6.0); HEMATOCRIT 33 % (39-51); HEMOGLOBIN 10.7 g/dL (13.5-17.5); LYMPHOCYTES % (AUTO) 18.4 % (20.0-44.0); MEAN CORPUSCULAR HEMOGLOBIN 27 PG (26.0-33.0); MEAN CORPUSCULAR HGB CONC 33 g/dl (31.0-36.0); MEAN CORPUSCULAR VOLUME 81 fL (80-96); MONOCYTES # (AUTO) 0.5 K/uL (0.1-1.30); MONOCYTES % (AUTO) 9.2 % (2.0-12.0); NEUTROPHILS # (AUTO) 3.8 K/uL (1.8-8.9); NEUTROPHILS % (AUTO) 69.9 % (43.0-81.0); PLATELET COUNT (AUTO) 247 K/uL (150-450); RED BLOOD CELL COUNT(AUTO) 4.05 MIL/uL (4.5-6.0); RED CELL DISTRIBUTION WIDTH 16.2 % (11.5-15.0); WHITE BLOOD COUNT (AUTO) 5.4 K/uL (4.3-11.0)
[2024-08-25] MEDS ORDERED: LACTULOSE 10 G/15 ML UDC (PYXIS) ONE (16:18)
[2024-08-25] MEDS ORDERED: KETOROLAC TROMETHAMINE 15 MG/ML VIAL ONE (16:18)
[2024-08-25 16:19] LABS: CALCIUM, SERUM 8.7 mg/dL (8.5-10.1); CARBON DIOXIDE 30 mmol/L (21-32); CHLORIDE 105 mmol/L (98-107); CREATININE 0.9 mg/dL (0.6-1.3); GLUCOSE 102 mg/dL (74-106); POTASSIUM 4.7 mmol/L (3.5-5.1); SODIUM SERUM 140 mmol/L (136-145); UREA NITROGEN, BLOOD 22 mg/dL (7-18)
[2024-08-25] MEDS ORDERED: MINERAL OIL 133 ML (PYXIS) 1 EA ENEMA RC ONE ×2 (16:19→19:02)
[2024-08-25 16:24] LABS: ALANINE AMINOTRANSFERASE < 6 U/L (12-78); ALBUMIN 3.1 g/dL (3.4-5.0); ALKALINE PHOSPHATASE 84 U/L (46-116); ASPARTATE AMINOTRANSFERASE 15 U/L (15-37); BILIRUBIN,DIRECT 0.1 mg/dL (0.0-0.2); BILIRUBIN,TOTAL 0.3 mg/dL (0.2-1.0); TOTAL PROTEIN, SERUM 6.2 g/dL (6.4-8.2)
[2024-08-25] MEDS: MINERAL OIL 133 ML (PYXIS) 1 EA ENEMA RC ONE ×2 (16:30→19:30)
[2024-08-25] MEDS: IV NS 0.9% 500 ML BAG IV ONE ×2 (16:44→19:53)
[2024-08-25] MEDS: KETOROLAC TROMETHAMINE 15 MG/ML VIAL IV ONE (16:46)
[2024-08-25] MEDS: LACTULOSE 10 G/15 ML UDC (PYXIS) PO ONE (16:47)
[2024-08-25] MEDS: IV NS 0.9% 1,000 ML BAG IV ONE (20:01)
[2024-08-25 20:55] LABS: APPEARANCE,URINE CLEAR (CLEAR); BILIRUBIN,URINE NEGATIVE (NEGATIVE); BLOOD, URINE NEGATIVE Ery/uL (NEGATIVE); COLOR,URINE YELLOW (YELLOW); KETONES,URINE 1+ mg/dL (NEGATIVE); LEUKOCYTE ESTERASE ,URINE NEGATIVE (NEGATIVE); NITRITE, URINE NEGATIVE (NEGATIVE); PROTEIN,URINE NEGATIVE (NEGATIVE); UGLUCOSE NEGATIVE (NEGATIVE)
[2024-08-25] MEDS ORDERED: MAGNESIUM HYDROXIDE 30 ML UDC PO PRN (21:00)
[2024-08-25] MEDS ORDERED: ACETAMINOPHEN 325 MG TABLET PO PRN (21:00)
[2024-08-25] MEDS ORDERED: Z GUARD REMEDY 4 OZ OINT TP PRN (21:00)
[2024-08-25] MEDS ORDERED: MAG HYDROX/AL HYDROX/SIMETH 30 ML UDC PO PRN (21:00)
[2024-08-25] MEDS ORDERED: ONDANSETRON HCL/PF 4 MG/2 ML VIAL IVP PRN (21:00)
[2024-08-25 21:09] LABS: ADD URINE CULTURE NO; BACTERIA,URINE Rare /HPF (None Seen); MUCUS,URINE Moderate /LPF (None Seen); RBC,URINE 0-2 /HPF (0-2); SQUAMOUS EPITHELIAL CELL,UR None Seen /HPF (None Seen); WBC,URINE 0-2 /HPF (0-3)
[2024-08-25] MEDS ORDERED: LORAZEPAM 1 MG TABLET PO PRN (21:30)
[2024-08-25] MEDS ORDERED: CANNABIDIOL PO PRN (21:30)
[2024-08-25] MEDS ORDERED: LOPERAMIDE HCL (2 MG CAP) 2 MG CAPSULE PO PRN (21:30)
[2024-08-25] MEDS ORDERED: POLYETHYLENE GLYCOL 3350 17 GM POWD.PACK PO PRN (21:30)
[2024-08-25] MEDS: CARBIDOPA/LEV CR 50/200 MG 1 UDTAB.SA PO SCH (22:00)
[2024-08-25] MEDS: IV NS 0.9% 1,000 ML IV SCH (22:00)
[2024-08-25] MEDS ORDERED: LORAZEPAM 0.5 MG TABLET ONE (22:25)
[2024-08-25] MEDS: LORAZEPAM 0.5 MG TABLET PO ONE (22:33)
[2024-08-25] MEDS: CARBIDOPA/LEVODOPA 25/100 MG 1 UDTAB ONE (23:07)
[2024-08-26] MEDS: CARBIDOPA/LEV CR 50/200 MG 1 UDTAB.SA PO SCH (01:00)
[2024-08-26] MEDS ORDERED: CARBIDOPA/LEVODOPA 25/100 MG 1 UDTAB PO SCH ×2 (07:00→15:00)
[2024-08-26 07:11] LABS: BASOPHILS # (AUTO) 0.1 K/uL (0.0-0.2); BASOPHILS % (AUTO) 0.7 % (0.0-2.0); EOSINOPHILS # (AUTO) 0.1 K/uL (0.0-0.7); EOSINOPHILS % (AUTO) 1.5 % (0.0-6.0); HEMATOCRIT 32 % (39-51); HEMOGLOBIN 10.7 g/dL (13.5-17.5); LYMPHOCYTES # (AUTO) 1.1 K/uL (0.8-4.8); LYMPHOCYTES % (AUTO) 13.6 % (20.0-44.0); MEAN CORPUSCULAR HEMOGLOBIN 27 PG (26.0-33.0); MEAN CORPUSCULAR HGB CONC 34 g/dl (31.0-36.0); MEAN CORPUSCULAR VOLUME 81 fL (80-96); MONOCYTES # (AUTO) 0.7 K/uL (0.1-1.30); MONOCYTES % (AUTO) 8.7 % (2.0-12.0); NEUTROPHILS % (AUTO) 75.5 % (43.0-81.0); PLATELET COUNT (AUTO) 231 K/uL (150-450); RED BLOOD CELL COUNT(AUTO) 3.89 MIL/uL (4.5-6.0); RED CELL DISTRIBUTION WIDTH 16.1 % (11.5-15.0)
[2024-08-26 07:14] LABS: CALCIUM, SERUM 8.4 mg/dL (8.5-10.1); CREATININE 0.8 mg/dL (0.6-1.3); MAGNESIUM 2.4 mg/dL (1.8-2.4); PHOSPHORUS 3.5 mg/dL (2.5-4.9)
[2024-08-26] MEDS ORDERED: PSYL1PAC8 PO (08:51)
[2024-08-26] MEDS ORDERED: CARB1TAB24 PO (08:51)
[2024-08-26] MEDS ORDERED: CHOL200059 PO (08:51)
[2024-08-26] MEDS ORDERED: SENN8.6T19 PO (08:51)
[2024-08-26] MEDS ORDERED: KETO15CR2 TP (08:51)
[2024-08-26] MEDS ORDERED: DICL100G34 TP (08:51)
[2024-08-26] MEDS ORDERED: CLIN30SO2 TP (08:51)
[2024-08-26] MEDS ORDERED: LORA-258 PO (08:51)
[2024-08-26] MEDS ORDERED: predniSONE 50 MG TABLET PO SCH (09:00)
[2024-08-26] MEDS ORDERED: ASCORBIC ACID 500 MG TABLET PO SCH (09:00)
[2024-08-26] MEDS ORDERED: cetrizine 10 MG TABLET PO SCH (09:00)
[2024-08-26] MEDS ORDERED: DOCUSATE SODIUM 100 MG CAPSULE PO SCH (09:00)
[2024-08-26] MEDS ORDERED: Medication Not On Formulary EA (Magnesium Oxide (Magnesium) 500 MG) PO SCH (09:00)
[2024-08-26] MEDS ORDERED: LACTULOSE 10 G/15 ML UDC (PYXIS) ONE (09:44)
[2024-08-26] MEDS ORDERED: DOCUSATE SODIUM 100 MG CAPSULE PO ONE (09:44)
[2024-08-26] MEDS ORDERED: PANTOPRAZOLE 40 MG VIAL ONE (09:44)
[2024-08-26] MEDS ORDERED: CITALOPRAM HYDROBROMIDE 20 MG TABLET ONE (09:45)
[2024-08-26] MEDS: PANTOPRAZOLE 40 MG VIAL IV SCH (09:57)
[2024-08-26] MEDS: CITALOPRAM HYDROBROMIDE 20 MG TABLET PO SCH (09:57)
[2024-08-26] MEDS: LACTULOSE 10 G/15 ML UDC (PYXIS) PO SCH (09:58)
[2024-08-26] MEDS: POLYETHYLENE GLYCOL 3350 17 GM POWD.PACK PO SCH (09:58)
[2024-08-26] MEDS: DOCUSATE SODIUM 100 MG CAPSULE PO SCH (09:58)
[2024-08-26] MEDS: CHOLECALCIFEROL 1,000 UNIT TABLET (VIT D3) PO SCH (11:35)
[2024-08-26] MEDS: MULTIVIT W/MINERALS 1 TAB TABLET PO SCH (11:37)
[2024-08-26] MEDS: MORPHINE SULFATE INJ 2 MG/ML DISP.SYRIN IV ONE (12:04)
[2024-08-26] MEDS: NA PHOS,M-B/NA PHOS,DI-BA 1 EA ENEMA RC PRN (12:29)
[2024-08-26 13:00] VITALS: BP 143/72; TEMP 97.7; O2SAT 99
[2024-08-26] MEDS: CARBIDOPA/LEVODOPA 25/250 MG 1 UDTAB PO SCH (15:25)
[2024-08-26] MEDS: BISACODYL SUPP (10 MG) 10 MG/SUPP.RECT SUPP.RECT RC SCH (15:25)
[2024-08-26 16:02] VITALS: BP 153/69; TEMP 97.9; O2SAT 99
[2024-08-26] MEDS: MULTIVITAMIN/LUTEIN/MINERALS 1 TAB PO SCH (16:56)
[2024-08-26] MEDS: ENOXAPARIN SODIUM 40 MG/0.4 ML DISP.SYRIN SQ SCH (18:20)
[2024-08-26 21:11] VITALS: BP 106/56; TEMP 97.3; O2SAT 95
[2024-08-26 21:43] VITALS: BP 106/56; TEMP 97.7; O2SAT 95
[2024-08-27 07:05] LABS: BASOPHILS # (AUTO) 0.1 K/uL (0.0-0.2); BASOPHILS % (AUTO) 0.6 % (0.0-2.0); EOSINOPHILS # (AUTO) 0.1 K/uL (0.0-0.7); EOSINOPHILS % (AUTO) 0.9 % (0.0-6.0); HEMATOCRIT 34 % (39-51); HEMOGLOBIN 11.3 g/dL (13.5-17.5); LYMPHOCYTES # (AUTO) 0.7 K/uL (0.8-4.8); LYMPHOCYTES % (AUTO) 8.6 % (20.0-44.0); MEAN CORPUSCULAR HEMOGLOBIN 27 PG (26.0-33.0); MEAN CORPUSCULAR HGB CONC 33 g/dl (31.0-36.0); MEAN CORPUSCULAR VOLUME 81 fL (80-96); MONOCYTES # (AUTO) 0.7 K/uL (0.1-1.30); MONOCYTES % (AUTO) 8.5 % (2.0-12.0); NEUTROPHILS # (AUTO) 6.9 K/uL (1.8-8.9); NEUTROPHILS % (AUTO) 81.4 % (43.0-81.0); PLATELET COUNT (AUTO) 236 K/uL (150-450); RED BLOOD CELL COUNT(AUTO) 4.26 MIL/uL (4.5-6.0); RED CELL DISTRIBUTION WIDTH 16.2 % (11.5-15.0); WHITE BLOOD COUNT (AUTO) 8.5 K/uL (4.3-11.0)
[2024-08-27 07:22] LABS: CALCIUM, SERUM 8.9 mg/dL (8.5-10.1); CREATININE 0.7 mg/dL (0.6-1.3); POTASSIUM 3.9 mmol/L (3.5-5.1)
[2024-08-27 08:00] VITALS: BP 143/77; TEMP 98.6; O2SAT 99
[2024-08-27] MEDS: PANTOPRAZOLE 40 MG TABLET.DR PO SCH (09:50)
[2024-08-27] MEDS ORDERED: POLYETHYLENE GLYCOL 3350 17 GM POWD.PACK PO PRN (12:30)
[2024-08-27] MEDS: PEG 3350/NA SULF,BICARB,CL/KCL 4,000 ML BOTTLE PO ONE (13:44)
[2024-08-27 16:00] VITALS: BP 134/66; TEMP 97.9; O2SAT 98
[2024-08-27 20:00] VITALS: BP 144/61; TEMP 98.1; O2SAT 95
[2024-08-28 04:00] VITALS: BP 144/61; TEMP 98.1; O2SAT 95
[2024-08-28 07:00] VITALS: BP 144/65; TEMP 97.9; O2SAT 96
[2024-08-28 07:14] LABS: BASOPHILS % (AUTO) 0.4 % (0.0-2.0); EOSINOPHILS % (AUTO) 0.4 % (0.0-6.0); HEMATOCRIT 33 % (39-51); LYMPHOCYTES # (AUTO) 0.9 K/uL (0.8-4.8); LYMPHOCYTES % (AUTO) 10.4 % (20.0-44.0); MEAN CORPUSCULAR HEMOGLOBIN 26 PG (26.0-33.0); MEAN CORPUSCULAR HGB CONC 33 g/dl (31.0-36.0); MEAN CORPUSCULAR VOLUME 80 fL (80-96); MONOCYTES # (AUTO) 0.6 K/uL (0.1-1.30); MONOCYTES % (AUTO) 7.1 % (2.0-12.0); NEUTROPHILS # (AUTO) 6.8 K/uL (1.8-8.9); NEUTROPHILS % (AUTO) 81.7 % (43.0-81.0); PLATELET COUNT (AUTO) 246 K/uL (150-450); RED BLOOD CELL COUNT(AUTO) 4.17 MIL/uL (4.5-6.0); RED CELL DISTRIBUTION WIDTH 15.9 % (11.5-15.0); WHITE BLOOD COUNT (AUTO) 8.3 K/uL (4.3-11.0)
[2024-08-28 07:26] LABS: CALCIUM, SERUM 8.6 mg/dL (8.5-10.1); CREATININE 0.8 mg/dL (0.6-1.3); POTASSIUM 3.7 mmol/L (3.5-5.1)
[2024-08-28] MEDS ORDERED: LACT20SO4 PO (11:58)
[2024-08-28 16:00] VITALS: BP 118/53; TEMP 98.1; O2SAT 95
[2024-08-28 20:00] VITALS: BP 120/60; TEMP 98; O2SAT 96
[2024-08-29 08:00] VITALS: BP 168/80; TEMP 97.7; O2SAT 96
== END 2024-08-29 10:35 | DRG 388 ==
LOC: ER 15:21 → TRANSITION 08-26 06:16 → MED 08-26 10:27
PROVIDERS: ATTEND Internal Medicine
DX: K56.41 Fecal impaction (principal); G93.41 Metabolic encephalopathy; F01.54 Vascular dementia, unspecified severity, with anxiety; F01.53 Vascular dementia, unspecified severity, with mood disturbance; E86.0 Dehydration; G20.A1 Parkinson's disease without dyskinesia, without mention of fluctuations; D64.9 Anemia, unspecified; F32.A Depression, unspecified; R13.10 Dysphagia, unspecified; Z87.891 Personal history of nicotine dependence; F41.9 Anxiety disorder, unspecified; Z96.82 Presence of neurostimulator; R79.89 Other specified abnormal findings of blood chemistry
CPT/HCPCS: 36415; 74018; 80048-TC; 80076-TC; 81001; 83735-TC; 84100-TC; 85025-TC; 87081-TC; 92526; 92611-TC; 97110-TC; 97116-TC; 97530-TC; G0378; J1650; J1885; J2270; J2470; J7030; J7040